=== PATIENT | male | born 1995 | race Caucasian/White ===

== ENCOUNTER 2022-01-14 17:26 | Emergency (ER) | payer BC ==
[~2022-01-14] VITALS: Ht 177.8 cm; Wt 62.7 kg
[~2022-01-14 17:26] MED LIST: REGL10TA6 PO
[2022-01-14] MEDS ORDERED: ONDANSETRON 4MG/2ML VIAL IV ONE (19:15)
[2022-01-14] MEDS ORDERED: NS 1,000 ML IV ONE (19:15)
[2022-01-14 19:50] LABS: BASO % 0.2 % (0.0-1.0); EOS % 0.3 % (0.0-3.0); HEMATOCRIT 47.8 % (42.0-52.0); LYMPH # 1.2 10^3/uL (1.5-5.0); LYMPH % 20.5 % (24.0-44.0); MEAN CORPUSCULAR HGB CONC 35.6 g/dl (32.0-36.5); MEAN CORPUSCULAR VOLUME 84.5 fl (80.0-96.0); MONO # 0.6 10^3/uL (0.0-0.8); MONO % 10.1 % (2.0-8.0); NEUTROPHILS % 68.6 % (36.0-66.0); PLATELET COUNT, AUTOMATED 190 10^3/uL (150-450); RED BLOOD COUNT 5.66 10^6/uL (4.30-6.10); WHITE BLOOD COUNT 5.9 10^3/uL (4.0-10.0)
[2022-01-14] MEDS ORDERED: ISOVUE-370 76% 100ML VIAL As Ordered ONE (19:53)
[2022-01-14 20:06] LABS: INR 1.02; PROTHROMBIN TIME 13.8 SECONDS (12.7-14.5)
[2022-01-14 20:07] LABS: PARTIAL THROMBOPLASTIN TIME 27.6 SECONDS (25.9-37.0)
[2022-01-14 20:10] LABS: D-DIMER QUANT 1148.23 ng/ml (<500)
[2022-01-14 20:16] LABS: BILIRUBIN,DIRECT 0.2 MG/DL (0.0-0.2); BILIRUBIN,TOTAL 0.8 MG/DL (0.2-1.0); C REACTIVE PROTEIN QUANTITATIV 0.59 MG/DL (0.00-0.30); MAGNESIUM LEVEL 2.2 MG/DL (1.8-2.4); TOTAL PROTEIN 8.2 GM/DL (6.4-8.2)
[2022-01-14] MEDS: ONDANSETRON 4MG/2ML VIAL IV PRN ×3 (22:15→22:26)
[2022-01-14] MEDS ORDERED: PERCOCET 5MG/325MG TAB PO ONE (22:20)
[2022-01-14] MEDS ORDERED: ASPI81TA26 PO (22:33)
[2022-01-14] MEDS ORDERED: ONDA4TAB6 PO (22:33)
[2022-01-14] MEDS ORDERED: PROMETHAZINE 25MG/ML 1ML VIAL IV ONE (23:05)
[2022-01-15 00:11] VITALS: BP 145/70
== END 2022-01-15 00:12 | disposition home or self-care (01) ==
LOC: M ED 17:26
DX: U07.1 COVID-19 (principal); K76.0 Fatty (change of) liver, not elsewhere classified; E86.0 Dehydration
CPT/HCPCS: 74174; 80047; 80076; 82728; 83605; 83615; 83690; 83735; 84145; 85025; 85379; 85384; 85610; 85730; 86140; 87040; 93005; 96361; 96374; 96375; 99284; J2405; J2550; Q9967